=== PATIENT | female | born 1960 | race American Indian/Alaskan Native ===

== ENCOUNTER 2017-03-15 13:35 | Emergency (ER) | payer SELFPAY ==
[2017-03-15] MEDS ORDERED: VALIUM IM ONE (16:25)
[2017-03-15] MEDS ORDERED: TORADOL IM ONE (16:25)
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
[2017-03-15] MEDS ORDERED: VALIUM PO ONE (17:10)
[2017-03-15] MEDS ORDERED: VALIUM ONE (17:12)
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
[2017-03-15 18:16] VITALS: BP 148/97
== END 2017-03-15 18:17 | disposition home or self-care (01) ==
LOC: EDBD 13:35 → ED 13:35
DX: S16.1XXA Strain of muscle, fascia and tendon at neck level, initial encounter (principal); M54.9 Dorsalgia, unspecified; R51 Headache; I10 Essential (primary) hypertension; Z88.1 Allergy status to other antibiotic agents; Z88.8 Allergy status to other drugs, medicaments and biological substances; V89.2XXA Person injured in unspecified motor-vehicle accident, traffic, initial encounter; Y93.89 Activity, other specified; Y92.89 Other specified places as the place of occurrence of the external cause; Y99.8 Other external cause status
CPT/HCPCS: 72070; 72100; 72125; 96372; 99284; J1885; J3360